=== PATIENT | male | born 1975 | race Caucasian/White ===

== ENCOUNTER → 2024-11-11 08:20 | Outpatient (REF) | payer BC, SELFPAY | LOC: EMG 08:20 | PROVIDERS: ATTENDING PHYSICIAN Podiatrist Foot & Ankle Surgery; FAMILY PHYSICIAN Nurse Practitioner Primary Care | DX: G57.51 Tarsal tunnel syndrome, right lower limb (principal); R20.0 Anesthesia of skin | CPT/HCPCS: 95886; 95911 ==